=== PATIENT | female | born 1965 | race Two or more races ===

== ENCOUNTER 2024-04-05 17:27 | Emergency (ER) | payer OTHER ==
[~2024-04-05] VITALS: Ht 160 cm; Wt 63.3 kg
[2024-04-05] MEDS: HYDROcodone-ACET 10/325MG TAB PO ONE (17:58)
[2024-04-05 18:42] VITALS: PULSE 119; RESP 18; O2SAT 99
[2024-04-05 19:00] VITALS: TEMP 98.1
[2024-04-05] MEDS ORDERED: IBU600T PO (19:10)
[2024-04-05] MEDS ORDERED: HYDR-4902 PO (19:10)
[2024-04-05 19:30] VITALS: PULSE 113; PULSE 114; RESP 12; RESP 15
[2024-04-05] MEDS: MORPHINE SULFATE 4 MG/ML SYR/VIAL IV ONE (19:52)
[2024-04-05] MEDS: ONDANSETRON HCL 4 MG/2 ML VIAL IV ONE (19:53)
[2024-04-05 20:30] VITALS: BP 110/64; PULSE 97; RESP 14; O2SAT 96
== END 2024-04-05 20:42 | disposition home or self-care (01) ==
LOC: ER 17:27
DX: S42.214A Unspecified nondisplaced fracture of surgical neck of right humerus, initial encounter for closed fracture (principal); I10 Essential (primary) hypertension; Z88.0 Allergy status to penicillin; Z90.89 Acquired absence of other organs; Z98.890 Other specified postprocedural states; W18.39XA Other fall on same level, initial encounter; Y93.89 Activity, other specified; Y92.89 Other specified places as the place of occurrence of the external cause; Y99.8 Other external cause status
CPT/HCPCS: 73030; 96374; 96375; 99285; J2270; J2405